=== PATIENT | male | born 1960 | race Caucasian/White ===

== ENCOUNTER 2019-09-02 06:11 | Day surgery (SDC) | payer BC ==
[~2019-09-02] VITALS: Ht 170.2 cm; Wt 100.4 kg
[~2019-09-02 06:11] MED LIST: LISI5; MIRAPEX ER2.25 MG; RYTARY ER 36.21 EACH
--- NOTE | 2019-09-02 09:13 | NUR ---
09/02/19 0913 Arleen Maurer PT. REFUSED ANYTHING P.O. POST COLONOSCOPY.
== END 2019-09-02 08:50 | disposition home or self-care (01) ==
LOC: ORSCSDS 06:11
PROVIDERS: Surgery
PROC: 0DJD8ZZ Inspection of Lower Intestinal Tract, Via Natural or Artificial Opening Endoscopic (ICD-10-PCS; principal; 2019-09-02 08:00)
DX: Z12.11 Encounter for screening for malignant neoplasm of colon (principal); Z86.010 Personal history of colon polyps; I10 Essential (primary) hypertension; G20 Parkinson's disease; Z79.899 Other long term (current) drug therapy; F17.220 Nicotine dependence, chewing tobacco, uncomplicated; E66.01 Morbid (severe) obesity due to excess calories; Z68.37 Body mass index [BMI] 37.0-37.9, adult
CPT/HCPCS: J2405; J2704; J7120

== ENCOUNTER → 2022-05-24 | Outpatient (CLI) | payer BC | LOC: LAB 11:12 → LAB SHORT 11:12 | DX: D48.5 Neoplasm of uncertain behavior of skin (principal) | CPT/HCPCS: 88305 ==